=== PATIENT | female | born 1975 | race Caucasian/White ===

== ENCOUNTER → 2021-04-29 15:44 | Outpatient (CLI) | payer SELFPAY ==
--- NOTE | 2021-04-29 15:58 | RAD_ITS ---
STUDY: X-RAY - CERVICAL SPINE REASON FOR EXAM: Female, 46 years old. Neck pain. TECHNIQUE: 5 view(s) of the cervical spine including lateral flexion and extension views were obtained. COMPARISON: None FINDINGS: Normal anterior atlantoaxial articulation. Normal odontoid process. Normal cervical lordosis. Limited flexion and extension with no abnormal motion. Normal vertebral bodies and endplates. Diffuse uncovertebral and facet sclerosis. Mild intervertebral disc space narrowing at C4-5 and C5-6 with small osteophytes. The soft tissue structures are unremarkable. RAD/Cerv Spine 4 or 5 Views IMPRESSION: Limited flexion and extension with no abnormal motion. Mild lower cervical spondylosis. Electronically Signed: Slade Pena MD at 12:04 EDT , Service support ,
--- NOTE | 2021-04-29 15:59 | RAD_ITS ---
STUDY: X-RAY - LUMBAR SPINE REASON FOR EXAM: Female, 46 years old. Pain. TECHNIQUE: 2 view(s) of the lumbar spine were obtained. COMPARISON: None FINDINGS: Normal lumbar lordosis. There is no substantial scoliosis. There is a normal alignment of the vertebrae. Normal vertebral bodies and endplates. Mild facet sclerosis diffusely. Minimal intervertebral disc space narrowing at L3-4, L4-5 and to the greatest degree L5-S1 with small osteophytes. The soft tissue structures are unremarkable. RAD/Lumbar Spine 2 or 3 Views IMPRESSION: Mild lower lumbar spondylosis. No acute abnormality, evidence of erosive changes or fusion. Electronically Signed: Slade Pena MD at 12:05 EDT , Service support ,
--- NOTE | 2021-04-29 16:12 | RAD_ITS ---
STUDY: X-RAY - THORACIC SPINE REASON FOR EXAM: Female, 46 years old. Pain. TECHNIQUE: 2 view(s) of the thoracic spine were obtained. COMPARISON: None. FINDINGS: Normal kyphosis of the thoracic spine. Mild levoscoliosis of the lower thoracic spine. Normal thoracic vertebrae and endplates. Mild diffuse intervertebral disc space narrowing with no significant osteophyte formation. The soft tissue structures are unremarkable. RAD/Thoracic Spine 3 Views IMPRESSION: Mild levoscoliosis with very mild thoracic spondylosis. No acute abnormality, evidence of erosive changes or evidence of fusion. Electronically Signed: Slade Pena MD at 12:06 EDT , Service support ,
== END ==
PROVIDERS: PCP Family Medicine
DX: M54.6 Pain in thoracic spine (principal); M54.2 Cervicalgia; M54.5 Low back pain
CPT/HCPCS: 72050; 72072; 72100